=== PATIENT | male | born 1985 | race Caucasian/White ===

== ENCOUNTER 2016-08-11 03:21 | Emergency (ER) | payer MEDICAID ==
[~2016-08-11] VITALS: Ht 170.2 cm; Wt 113.4 kg
[2016-08-11] MEDS ORDERED: LORAZEPAM 0.5 MG TABLET PO ONE (03:45)
[2016-08-11 04:03] LABS: CALCIUM 8.8 mg/dL (8.5-10.1); CREATININE 0.9 mg/dL (0.6-1.3); POTASSIUM 3.7 mmol/L (3.5-5.1)
[2016-08-11] MEDS ORDERED: LORAZEPAM 1 MG TABLET ONE (04:06)
[2016-08-11 04:12] LABS: *BILIRUBIN,URIN NEGATIVE (NEGATIVE); *BLOOD, URINE Trace-intact (NEGATIVE); *CLARITY,URINE CLEAR (CLEAR); *COLOR,URINE STRAW (YELLOW); *KETONES,URINE NEGATIVE (NEGATIVE); *PROTEIN,URINE NEGATIVE (NEGATIVE); *UROBILINOGEN,URINE 0.2 E.U./dl (NORMAL); LEUKOCYTE ESTERASE ,URINE NEGATIVE (NEGATIVE); NITRITE, URINE NEGATIVE (NEGATIVE); UGLUCOSE NEGATIVE (NEGATIVE)
[2016-08-11 04:16] LABS: BACTERIA,URINE FEW /HPF (NONE SEEN); RBC,URINE 0-3 /HPF (0-3); SQUAMOUS EPITHELIAL CELL,UR FEW /HPF (NONE SEEN); WBC,URINE 0-3 /HPF (0-3)
--- NOTE | 2016-08-11 05:06 | NUR ---
Patient discharged to home in stable conditon. Written and verbal after care instructions given. Patient verbalizes understanding of instructions. Ambulated from ER with stable gait. All belongings with patient.
--- NOTE | 2016-08-11 05:07 | NUR ---
Patient will be driven home by his significant other in private vehicle. patient educated not to drive due to recent intake of Ativan.
[2016-08-11 05:08] VITALS: BP 140/82
== END 2016-08-11 05:08 | disposition home or self-care (01) ==
LOC: ER 03:22
DX: I10 Essential (primary) hypertension (principal); F41.9 Anxiety disorder, unspecified; E78.5 Hyperlipidemia, unspecified; Z88.6 Allergy status to analgesic agent
CPT/HCPCS: 36415; 80048; 81001; 93005; 99285; A4663